=== PATIENT | female | born 1965 | race Caucasian/White ===

== ENCOUNTER 2024-05-23 12:11 | Emergency (ER) | payer BC ==
[2024-05-23] MEDS: SODIUM CHLORIDE 0.9% 1,000 ML IV ONE (13:32)
[2024-05-23] MEDS: ONDANSETRON 4 MG/2 ML VIAL IVP PRN (13:32)
[2024-05-23 13:45] LABS: Basophils % (A) 0 %; Eosinophils # (A) 0.1 k/uL (0-0.7); Eosinophils % (A) 1 %; HCT 40.8 % (34.0-46.0); Lymphocytes # (A) 1.6 k/uL (1.0-4.8); Lymphocytes % (A) 17 %; MCH 27.9 pg (25.0-35.0); MCHC 31.8 g/dL (31.0-37.0); MCV 87.7 fL (80.0-100.0); Mean Platelet Volume 8.5; Monocytes # (A) 0.5 k/uL (0-1.0); Monocytes % (A) 5 %; Neutrophils # (A) 7.3 k/uL (1.3-7.7); Neutrophils % (A) 76 %; Platelet Count 158 k/uL (150-450); RBC 4.64 m/uL (3.80-5.40); RDW 13.6 % (11.5-15.5); WBC 9.7 k/uL (3.8-10.6)
[2024-05-23 13:50] LABS: Partial Thromboplastin Time 22.8 sec (22.0-30.0); Prothrombin Time 10.7 sec (10.0-12.5)
[2024-05-23 13:57] LABS: ALT 16 U/L (4-34); AST 20 U/L (14-36); African American GFR (CKD) >90 (>60 ml/min/1.73 sqM); Albumin 4.5 g/dL (3.5-5.0); Alkaline Phosphatase 63 U/L (38-126); Anion Gap 11 mmol/L; Blood Urea Nitrogen 13 mg/dL (7-17); Calcium 9.9 mg/dL (8.4-10.2); Carbon Dioxide 22 mmol/L (22-30); Chloride 104 mmol/L (98-107); Glucose 114 mg/dL (74-99); Lipase 102 U/L (23-300); Non-African American GFR(CKD) >90 (>60 ml/min/1.73 sqM); Potassium 4.3 mmol/L (3.5-5.1); Sodium 137 mmol/L (137-145); Total Bilirubin 0.4 mg/dL (0.2-1.3)
[2024-05-23 14:00] LABS: Appearance,Urine Cloudy (Clear); Bilirubin,Urine Negative (Negative); Blood,Urine Small (Negative); Color,Urine Yellow; Glucose,Urine (UA) Negative (Negative); Ketones,Urine Trace (Negative); Leukocyte Esterase,Urine Large (Negative); Mucus,Urine Few /hpf; Nitrite,Urine Negative (Negative); PH, Urine 5.5 (5.0-8.0); Protein,Urine Trace (Negative); RBC,Urine 3 /hpf (0-5); Squamous Epithelial Cell,Urine 3 /hpf (0-4); Urobilinogen,Urine <2.0 mg/dL (<2.0); WBC,Urine 26 /hpf (0-5)
[2024-05-23] MEDS: KETOROLAC 15 MG/ML 1 ML VIAL IVP STA (14:00)
--- NOTE | 2024-05-23 15:04 | CT ---
EXAMINATION TYPE: CT abdomen pelvis w con DATE OF EXAM: 05/23/2024 2:36 PM COMPARISON: None. CLINICAL INDICATION: Female, 59 years old with history of Abdominal pain; Nausea and vomiting with ab d pain. TECHNIQUE: Axial CT abdomen pelvis w con;Sagittal and coronal reformats were created on a separate w orkstation. Contrast used:100 ml mL of Isovue 300 with IV Contrast, (none if empty) Oral contrast used: without Oral Contrast (none if empty) CT DLP: 783.4 mGycm, Automated exposure control for dose reduction was used. FINDINGS: LOWER CHEST: Unremarkable ABDOMEN LIVER: Unremarkable GALLBLADDER AND BILE DUCTS: Unremarkable. PANCREAS: Unremarkable. SPLEEN: Unremarkable. ADRENAL GLANDS: Unremarkable. KIDNEYS AND URETERS: No evidence of hydronephrosis or renal calculus. The ureters are unremarkable. PELVIS BLADDER: No evidence for wall thickening or mass given limitations of exam. REPRODUCTIVE: Uterus unremarkable. Follicular changes of the ovaries and right adnexal cystic lesion measuring 4.9 cm. ABDOMEN & PELVIS STOMACH AND BOWEL: Stomach and duodenum are unremarkable No evidence of bowel obstruction. Mildly imp acted stool in the cecum and ascending colon. PERITONEUM/RETROPERITONEUM: No evidence of pneumoperitoneum or free fluid. VASCULATURE: No evidence of aortic aneurysm. MUSCULOSKELETAL: No acute osseous abnormalities LYMPH NODES: No gross evidence for lymphadenopathy. SOFT TISSUE/ABDOMINAL WALL: Unremarkable IMPRESSION: 1. Mildly impacted stool in the cecum and ascending colon. Otherwise, no acute abnormality in the ab domen/pelvis. 2. Right adnexal 4.9 cm cystic lesion. Recommend further evaluation with outpatient pelvic ultrasoun d exam. [facility], , 05/23/2024 3:02 PM
--- NOTE | 2024-05-23 16:05 | ED ---
Abdominal Pain HPI - General Source: patient Mode of arrival: ambulatory Limitations: no limitations - History of Present Illness Location: RLQ Radiation: none Severity: mild Severity scale (1-10): 5 Quality: cramping Consistency: intermittent, colicky Improves With: movement Associated Symptoms: nausea, vomiting, diarrhea, chills <PedroRylie - Last Filed: 05/23/24 16:31> <Cristi Mckeon - Last Filed: 05/23/24 17:39> - General Chief Complaint: Abdominal Pain Stated Complaint: abd pain Time Seen by Provider: 05/23/24 12:23 - History of Present Illness Initial Comments: Patient is a 59-year-old female presenting to the ED with her partner for abdominal pain. She states it began around 6 AM this morning, describes it as cramping in her right lower quadrant. States she had 1 episode of bright red blood in her emesis and had 1 episode of diarrhea with green loose stools. Subsequent stools were dark brown but she denies any gross blood per rectum. Endorses some chills and nausea. States symptoms are alleviated with positional changes or movement. Currently rating pain 5 out of 10. Denies chest pain, palpitations, fevers. Surgical history significant for bilateral tubal ligation 30 years ago. (Rylie Vasquez) - Related Data Allergies Allergy/AdvReac Type Severity Reaction Status Date / Time No Known Allergies Allergy Verified 05/23/24 12:23 Review of Systems ROS Other: All systems not noted in ROS Statement are negative. Constitutional: Reports: chills. Denies: fever Respiratory: Denies: cough, dyspnea, wheezes Cardiovascular: Denies: chest pain, palpitations Gastrointestinal: Reports: abdominal pain Genitourinary: Denies: urgency, dysuria Musculoskeletal: Denies: back pain Skin: Denies: rash, lesions Neurological: Denies: headache, weakness <Rylie Vasquez - Last Filed: 05/23/24 16:31> ROS Other: All systems not noted in ROS Statement are negative. <Cristi Mckeon - Last Filed: 05/23/24 17:39> ROS Statement: Those systems with pertinent positive or pertinent negative responses have been documented in the HPI. Past Medical History Past Medical History: No Reported History History of Any Multi-Drug Resistant Organisms: None Reported Past Surgical History: Tubal Ligation Past Psychological History: ADD/ADHD Smoking Status: Never smoker Past Alcohol Use History: Occasional Past Drug Use History: None Reported <PedroRylie - Last Filed: 05/23/24 16:31> General Exam Limitations: no limitations General appearance: alert, in no apparent distress Head exam: Present: atraumatic, normocephalic Respiratory exam: Present: normal lung sounds bilaterally. Absent: wheezes, rales, rhonchi Cardiovascular Exam: Present: regular rate, normal rhythm GI/Abdominal exam: Present: soft, tenderness (Mild tenderness in right lower quadrant. ), rebound, other (Negative Sky sign.). Absent: distended Neurological exam: Present: alert, oriented X3 Psychiatric exam: Present: normal affect, normal mood Skin exam: Present: warm, dry, intact <PedroRylie - Last Filed: 05/23/24 16:31> Course <PedroRylie - Last Filed: 05/23/24 16:31> Vital Signs 05/23/24 05/23/24 12:20 14:44 Temperature 97.6 F Pulse Rate 75 8 L Respiratory 20 18 Rate Blood Pressure 148/79 137/68 O2 Sat by Pulse 98 100 Oximetry - Reevaluation(s) Reevaluation #1: 05/23/24 15:00 Patient's pain has improved after dose of Toradol. (Rylie Vasquez) Reevaluation #2: 05/23/24 16:34 Patient states pain is improving with movement. (Rylie Vasquez) Medical Decision Making - Lab Data Result diagrams: 05/23/24 13:32 05/23/24 13:32 <Rylie Vasquez - Last Filed: 05/23/24 16:31> - Lab Data Result diagrams: 05/23/24 13:32 05/23/24 13:32 <Cristi Mckeon - Last Filed: 05/23/24 17:39> - Medical Decision Making Was pt. sent in by a medical professional or institution (, PA, YOUTH CORRECTIONS OFFICER, urgent care, hospital, or long term...) When possible be specific @ -No Did you speak to anyone other than the patient for history (EMS, parent, family, police, friend...)? What history was obtained from this source @ -No Did you review nursing and triage notes (agree or disagree)? Why? @ -I reviewed and agree with nursing and triage notes Were old charts reviewed (outside hosp., previous admission, EMS record, old EKG, old radiological studies, urgent care reports/EKG's, long term records)? Report findings @ -No old charts were reviewed Differential Diagnosis? @ -Differential Abdominal Pain Women: Appendicitis, Cholecystitis, diverticulosis, ischemic bowel, pancreatitis, hepatitis, UTI, gastroenteritis, AAA, incarcerated hernia, bowel obstruction, constipation, inflammatory bowel, hepatitis, peptic ulcer disease, splenic infarction, perforated viscus, vulvitis, ovarian torsion, PID, kidney stone, placenta abruption, this is not meant to be an all-inclusive list EKG interpreted by me (3pts min.). @ -As above X-rays interpreted by me (1pt min.). @ -None done CT interpreted by me (1pt min.). @ -CT abdomen pelvis with IV contrast, small right cystic lesion on adnexa U/S interpreted by me (1pt. min.). @ -Pending pelvic ultrasound What testing was considered but not performed or refused? (CT, X-rays, U/S, labs)? Why? @ -None What meds were considered but not given or refused? Why? @ -None Did you discuss the management of the patient with other professionals (professionals i.e. , PA, YOUTH CORRECTIONS OFFICER, lab, RT, psych nurse, director social welfare, custom applicator, teacher, water resources technical officer, outsole caser)? Give summary @ -Case was discussed with ED attending . Was smoking cessation discussed for >3mins.? @ -No Was critical care preformed (if so, how long)? @ -No Were there social determinants of health that impacted care today? How? (Homelessness, low income, unemployed, alcoholism, drug addiction, transportation, low edu. Level, literacy, decrease access to med. care, skilled nursing, rehab)? @ -No Was there de-escalation of care discussed even if they declined (Discuss DNR or withdrawal of care, Hospice)? DNR status @ -No What co-morbidities impacted this encounter? (DM, HTN, Smoking, COPD, CAD, Cancer, CVA, ARF, Chemo, Hep., AIDS, mental health diagnosis, sleep apnea, morbid obesity)? @ -None Was patient admitted / discharged? Hospital course, mention meds given and route, prescriptions, significant lab abnormalities, going to OR and other pe rtinent info. @ -Hospital course Undiagnosed new problem with uncertain prognosis? @ -No Drug Therapy requiring intensive monitoring for toxicity (Heparin, Nitro, Insulin, Cardizem)? @ -No Were any procedures done? @ -No Diagnosis/symptom? @ -Default Acute, or Chronic, or Acute on Chronic? @ -Acute Uncomplicated (without systemic symptoms) or Complicated (systemic symptoms)? @ -Default Side effects of treatment? @ -No Exacerbation, Progression, or Severe Exacerbation? @ -No Poses a threat to life or bodily function? How? (Chest pain, USA, NC, pneumonia, PE, COPD, DKA, ARF, appy, cholecystitis, CVA, Diverticulitis, Homicidal, Suicidal, threat to staff... and all critical care pts) @ -No (Rylie Vasquez) U/S interpreted by me (1pt. min.). @ -Pelvic ultrasound shows no torsion and shows a partially septated anechoic 4.9 cm right ovarian cyst. Was patient admitted / discharged? Hospital course, mention meds given and route, prescriptions, significant lab abnormalities, going to OR and other pertinent info. @ -Patient was endorsed to me by resident Dr. Vasquez (secondary to end of her shift) with the patient's pelvic ultrasound still pending. Patient's labs and imaging studies were all reviewed myself. Patient reports improvement in her pain with the Toradol that she was given in the ED. Patient and are aware the patient's test results, and patient feels comfortable being discharged home at this time. Patient was counseled about abdominal pain and ovarian cysts, and she was instructed to follow-up closely with her [employer] doctor. She was clearly explained return and follow-up instructions. Will discharge patient home at this time. Patient feels comfortable this plan. Undiagnosed new problem with uncertain prognosis? @ -No Drug Therapy requiring intensive monitoring for toxicity (Heparin, Nitro, Insulin, Cardizem)? @ -No Were any procedures done? @ -No Diagnosis/symptom? @ -Abdominal/pelvic pain, right ovarian cyst Acute, or Chronic, or Acute on Chronic? @ -Acute Uncomplicated (without systemic symptoms) or Complicated (systemic symptoms)? @ -Default Side effects of treatment? @ -No Exacerbation, Progression, or Severe Exacerbation? @ -No Poses a threat to life or bodily function? How? (Chest pain, USA, NC, pneumonia, PE, COPD, DKA, ARF, appy, cholecystitis, CVA, Diverticulitis, Homicidal, Suicidal, threat to staff... and all critical care pts) @ -No I personally saw the patient. I discussed the patient care with the resident (Dr. Vasquez). I directed management, care planning and final disposition of the patient. This includes, but not limited to, review of all lab work, radiological studies, EKG's, consultations, vital signs, and nursing notes. EKG interpreted by me (3pts min.) @ [none] X-Rays interpreted by me (1 pt min.) @ [none] CT interpreted by me ( 1pt min.) @ [none] U/S interpreted by me (1 pt min.) @ [As above] (Cristi Mckeon) - Lab Data Lab Results 05/23/24 05/23/24 05/23/24 Range/Units 13:32 13:32 13:32 WBC 9.7 (3.8-10.6) k/uL RBC 4.64 (3.80-5.40) m/uL Hgb 13.0 (11.4-16.0) gm/dL Hct 40.8 (34.0-46.0) % MCV 87.7 (80.0-100.0) fL MCH 27.9 (25.0-35.0) pg MCHC 31.8 (31.0-37.0) g/dL RDW 13.6 (11.5-15.5) % Plt Count 158 (150-450) k/uL MPV 8.5 Neutrophils % 76 % Lymphocytes % 17 % Monocytes % 5 % Eosinophils % 1 % Basophils % 0 % Neutrophils # 7.3 (1.3-7.7) k/uL Lymphocytes # 1.6 (1.0-4.8) k/uL Monocytes # 0.5 (0-1.0) k/uL Eosinophils # 0.1 (0-0.7) k/uL Basophils # 0.0 (0-0.2) k/uL PT 10.7 (10.0-12.5) sec INR 1.0 (<1.2) APTT 22.8 (22.0-30.0) sec Sodium 137 (137-145) mmol/L Potassium 4.3 (3.5-5.1) mmol/L Chloride 104 (98-107) mmol/L Carbon Dioxide 22 (22-30) mmol/L Anion Gap 11 mmol/L BUN 13 (7-17) mg/dL Creatinine 0.56 (0.52-1.04) mg/dL Est GFR (CKD-EPI)AfAm >90 (>60 ml/min/1.73 sqM) Est GFR (CKD-EPI)NonAf >90 (>60 ml/min/1.73 sqM) Glucose 114 H (74-99) mg/dL Calcium 9.9 (8.4-10.2) mg/dL Total Bilirubin 0.4 (0.2-1.3) mg/dL AST 20 (14-36) U/L ALT 16 (4-34) U/L Alkaline Phosphatase 63 (38-126) U/L Total Protein 7.0 (6.3-8.2) g/dL Albumin 4.5 (3.5-5.0) g/dL Lipase 102 (23-300) U/L Urine Color Urine Appearance (Clear) Urine pH (5.0-8.0) Ur Specific [place] (1.001-1.035) Urine Protein (Negative) Urine Glucose (UA) (Negative) Urine Ketones (Negative) Urine Blood (Negative) Urine Nitrite (Negative) Urine Bilirubin (Negative) Urine Urobilinogen (<2.0) mg/dL Ur Leukocyte Esterase (Negative) Urine RBC (0-5) /hpf Urine WBC (0-5) /hpf Ur Squamous Epith Cells (0-4) /hpf Urine Mucus (None) /hpf 05/23/24 Range/Units 13:32 WBC (3.8-10.6) k/uL RBC (3.80-5.40) m/uL Hgb (11.4-16.0) gm/dL Hct (34.0-46.0) % MCV (80.0-100.0) fL MCH (25.0-35.0) pg MCHC (31.0-37.0) g/dL RDW (11.5-15.5) % Plt Count (150-450) k/uL MPV Neutrophils % % Lymphocytes % % Monocytes % % Eosinophils % % Basophils % % Neutrophils # (1.3-7.7) k/uL Lymphocytes # (1.0-4.8) k/uL Monocytes # (0-1.0) k/uL Eosinophils # (0-0.7) k/uL Basophils # (0-0.2) k/uL PT (10.0-12.5) sec INR (<1.2) APTT (22.0-30.0) sec Sodium (137-145) mmol/L Potassium (3.5-5.1) mmol/L Chloride (98-107) mmol/L Carbon Dioxide (22-30) mmol/L Anion Gap mmol/L BUN (7-17) mg/dL Creatinine (0.52-1.04) mg/dL Est GFR (CKD-EPI)AfAm (>60 ml/min/1.73 sqM) Est GFR (CKD-EPI)NonAf (>60 ml/min/1.73 sqM) Glucose (74-99) mg/dL Calcium (8.4-10.2) mg/dL Total Bilirubin (0.2-1.3) mg/dL AST (14-36) U/L ALT (4-34) U/L Alkaline Phosphatase (38-126) U/L Total Protein (6.3-8.2) g/dL Albumin (3.5-5.0) g/dL Lipase (23-300) U/L Urine Color Yellow Urine Appearance Cloudy H (Clear) Urine pH 5.5 (5.0-8.0) Ur Specific [place] 1.030 (1.001-1.035) Urine Protein Trace H (Negative) Urine Glucose (UA) Negative (Negative) Urine Ketones Trace H (Negative) Urine Blood Small H (Negative) Urine Nitrite Negative (Negative) Urine Bilirubin Negative (Negative) Urine Urobilinogen <2.0 (<2.0) mg/dL Ur Leukocyte Esterase Large H (Negative) Urine RBC 3 (0-5) /hpf Urine WBC 26 H (0-5) /hpf Ur Squamous Epith Cells 3 (0-4) /hpf Urine Mucus Few H (None) /hpf - Radiology Data CT abdomen/pelvis with IV contrast: 1. Mildly impacted stool in the cecum and ascending colon. Otherwise, no acute abnormality in the abdomen/pelvis. 2. Right adnexal 4.9 cm cystic lesion. Recommend further evaluation with outpatient pelvic ultrasound exam. Pelvic ultrasound: 1. No evidence of ovarian torsion. 2. Partially septated anechoic cyst in the right ovary measuring 4.9 cm. (Cristi Mckeon) Disposition <Rylie Vasquez - Last Filed: 05/23/24 16:31> Is patient prescribed a controlled substance at d/c from ED?: No Time of Disposition: 17:39 <Cristi Mckeon - Last Filed: 05/23/24 17:39> Clinical Impression: Abdominal pain, Ovarian cyst Disposition: HOME SELF-CARE Condition: Stable Instructions (If sedation given, give patient instructions): Abdominal Pain (ED), Ovarian Cyst (ED) Additional Instructions: Return to the ER immediately should you develop new or worsening pain, persistent vomiting, feeling dizzy or faint, shortness of breath, a fever, or new or worsening symptoms. Follow-up closely with your primary care provider, as well as your [employer]ER. Referrals: None,Stated [Primary Care Provider] - 1-2 days Nieves Hopkins DO [Doctor of Osteopathic Medicine] - 1-2 days
--- NOTE | 2024-05-23 17:05 | US ---
EXAMINATION TYPE: US transvaginal DATE OF EXAM: 05/23/2024 COMPARISON: NONE CLINICAL INDICATION: Female, 59 years old with history of R/O ovarian torsion; RLQ pain f/u to ct sca n. TECHNIQUE: Transvaginal (TV). FINDINGS: EXAM MEASUREMENTS: Uterus: 5.7 x 2.7 x 4.2 cm Endometrial Stripe: .4 cm Right Ovary: 7.3 x 3.1 x 4.5 cm 1. Uterus: Anteverted wnl 2. Endometrium: wnl 3. Right Ovary: Partially septated anechoic cyst measuring 4.9 x 3.5 x 4.3 cm. 4. Left Ovary: Obscured by overlying bowel gas Spectral, color and waveform doppler imaging shows good arterial and venous flow within the right o vary; there is no evidence for ovarian torsion. 5. Bilateral Adnexa: wnl 6. Posterior cul-de-sac: wnl IMPRESSION: 1. No evidence of ovarian torsion. 2. Partially septated anechoic cyst in the right ovary measuring 4.9 cm. [facility], , 05/23/2024 5:03 PM
[2024-05-23 17:44] VITALS: BP 128/85; PULSE 92; RESP 19; TEMP 98.1
[2024-05-23] MEDS: ACET/COD 300 MG/30 MG STARTER PACK 6 TAB BTL PO STA (18:06)
== END 2024-05-23 18:12 | disposition home or self-care (01) ==
LOC: EC 12:11
DX: N83.201 Unspecified ovarian cyst, right side (principal)
CPT/HCPCS: 36415; 80053; 83690; 85025; 85610; 85730; 81001; 93976; 76830; 74177; 99284; 96374; 96375; 96361; J2405; J1885; Q9967

== ENCOUNTER → 2024-06-25 | Outpatient (CLI) | payer BC ==
--- NOTE | 2024-06-26 07:51 | MM ---
Reason for Exam: Screening (asymptomatic). Patient History: Menarche at age 15. First Full-Term at age 22. Left ovary removed at age 21. Postmenopausal. Maternal aunt had breast cancer, age 50. Risk Values: Rachael 5 year model risk: 1.4%. NCI Lifetime model risk: 8.3%. Prior Study Comparison: No prior studies available for comparison. Tissue Density: There are scattered areas of fibroglandular density. Findings: Analyzed By CAD. Right breast: There is no suspicious group of microcalcifications or new suspicious mass. Left breast: Asymmetry left breast cc view 8.7 cm from the nipple measuring 6 mm. Overall Assessment: Incomplete: need additional imaging evaluation, BI-RAD 0 Management: Diagnostic Breast Ultrasound of the left breast. [facility] will attempt to contact patient to return for supplemental views and ultrasound if indicated. Patient should continue monthly self-breast exams. A clinical breast exam by your physician is recommended on an annual basis. This exam should not preclude additional follow-up of suspicious palpable abnormalities. Note on Rachael scores and lifetime risk: 1. A Rachael score greater than 3% is considered moderate risk. If this is the case, consider specialist referral to assess eligibility for a risk reducing agent. 2. If overall lifetime risk for the development of breast cancer is 20% or higher, the patient may qualify for future screening with alternating mammogram and breast MRI. [facility], , 06/26/2024 7:48 AM. Electronically signed and approved by: Luis Manuel Metcalf DO
== END | disposition home or self-care (01) ==
LOC: RADMAMWWP 16:26
PROVIDERS: ATTEND Family Medicine
DX: Z12.31 Encounter for screening mammogram for malignant neoplasm of breast (principal); R92.323 Mammographic fibroglandular density, bilateral breasts; Z78.0 Asymptomatic menopausal state; Z80.3 Family history of malignant neoplasm of breast
CPT/HCPCS: 77063; 77067

== ENCOUNTER 2024-07-02 10:37 | Day surgery (SDC) | payer BC ==
[2024-07-01 09:37] VITALS: BMI 25.4
[2024-07-02 11:13] VITALS: RESP 16
[2024-07-02] MEDS: IV FLUID CONTINUATION 1,000 ML IV ONE (11:13)
[2024-07-02] MEDS: LACTATED RINGERS 1,000 ML IV SCH (11:13)
[2024-07-02] MEDS ORDERED: PROPOFOL 10 MG/ML 20 ML VIAL IV ONE (12:05)
[2024-07-02] MEDS ORDERED: LIDOCAINE 1% INJ 10MG/ML (20 ML MDV) ONE (12:05)
--- NOTE | 2024-07-02 12:29 | P.PCN ---
Date of Procedure: 07/02/24 Preoperative Diagnosis: History of constipation Postoperative Diagnosis: Overall normal colon, internal hemorrhoids Procedure(s) Performed: Colonoscopy Anesthesia: MAC Surgeon: Arya Lin Pathology: none sent Condition: stable Disposition: same day Indications for Procedure: 59-year-old female with recent history of constipation and abdominal pain presents for colonoscopy. Risks, benefits and alternatives were provided to the patient. She has never had colonoscopy previously. Operative Findings: Overall, normal-appearing colon with mild internal hemorrhoids Description of Procedure: The patient was brought to the endoscopy suite and placed in left lateral decubitus position and adequate sedation was achieved using conscious sedation. Digital rectal exam was performed and mild internal hemorrhoids were palpated. An endoscope was then placed in the rectum and advanced to the cecum as identified by landmarks including the appendiceal orifice and the ileocecal valve. The prep was good. The colonoscope was then slowly withdrawn, examining for any mucosal abnormalities. The cecum, ascending, transverse, descending and sigmoid colon were visualized adequately. There were no large neoplastic lesions noted throughout the colon. No obstructive process noted. No polyps noted. Hemostasis was maintained. No significant evidence of diverticulosis. Retroflexion was performed in the rectum and internal hemorrhoids. Excess air was removed, the colonoscope withdrawn and the procedure terminated. The patient was then transferred to the recovery unit in stable condition. Repeat colonoscopy should be performed in 10 years.
[2024-07-02 12:37] VITALS: TEMP 98
[2024-07-02 12:45] VITALS: BP 115/79; PULSE 91
== END 2024-07-02 13:01 | disposition home or self-care (01) ==
LOC: ORWHC2ENDO 10:37
PROVIDERS: ATTEND Surgery
DX: K64.8 Other hemorrhoids (principal); F90.9 Attention-deficit hyperactivity disorder, unspecified type; Z98.51 Tubal ligation status
CPT/HCPCS: 45378; J2003; J2704

== ENCOUNTER → 2024-07-09 | Outpatient (CLI) | payer BC ==
--- NOTE | 2024-07-09 16:07 | USB ---
Reason for Exam: Additional evaluation requested from abnormal screening. Patient History: Menarche at age 15. First Full-Term at age 22. Left ovary removed at age 21. Postmenopausal. 07/02/2008, Benign Excisional Biopsy on the left side. Maternal aunt had breast cancer, age 50. Risk Values: Rachael 5 year model risk: 1.4%. NCI Lifetime model risk: 8.3%. Technique: Method: Targeted. Prior Study Comparison: 06/25/2024 Bilateral MG screening mammo w CAD, [place]. Findings: The upper inner quadrant of the left breast, the lower inner quadrant of the left breast, the axilla of the left breast and the retroareolar of the left breast were scanned. Technique utilized:US breast workup limited LT Image; Ultrasound imaging of: Area of concern, retroareolar region and axilla. Anechoic cyst at 7:00 8 cm nipple that correlates with lesion on mammography cc view at posterior depth. Cyst measures up to 6 x 7 x 5 mm . No evidence for solid mass. Negative left axilla. Overall Assessment: Benign, BI-RAD 2 Management: Screening Mammogram of both breasts in 1 year. A clinical breast exam by your physician is recommended on an annual basis and results should be correlated with mammographic findings. This exam should not preclude additional follow-up of suspicious palpable abnormalities. Results were given to the patient verbally at the time of exam. [facility], , 07/09/2024 4:04 PM. Electronically signed and approved by: Luis Manuel Metcalf DO
== END | disposition home or self-care (01) ==
LOC: RADUSWWP 15:41
PROVIDERS: ATTEND Family Medicine
DX: R92.8 Other abnormal and inconclusive findings on diagnostic imaging of breast (principal); Z78.0 Asymptomatic menopausal state; Z80.3 Family history of malignant neoplasm of breast